=== PATIENT | female | born 1980 | race Two or more races ===

== ENCOUNTER 2021-01-22 17:56 | Emergency (ER) | payer OTHER ==
[~2021-01-22] VITALS: Ht 165.1 cm; Wt 99.2 kg
--- NOTE | 2021-01-22 18:24 | PHYS DOC ---
Past History Past Medical History: Migraines General Adult EDM: Chief Complaint: HEADACHE HPI: HPI: ".. This migraine will not go away... I ve had it since Tuesday.... I did have a CT maybe a year ago.. it was okay.. I usually just take tylenol... but it has not helped much this time..." Patient is a 40 year old female who presents with above hx and complaints of migraine. Patient states distribution of pain and symptoms are similar to her prior migraines. Sometimes the onset of headache is related to weather changes. Patient does have photosensitivity, mild nausea, and sensitivity to loud noises. Patient denies any fever or chills. Patient denies any specific ill contacts. Patient denies any recent travel. Patient denies any history of trauma. Patient denies any history of cancer. Patient denies any history of immunosuppression. Patient denies any history of IV drug use. Patient normally healthy. Patient follows with Dr. Coulter as a primary. Review of Systems: Review of Systems: Constitutional: Denies fever or chills Eyes: Denies change in visual acuity HENT: Denies nasal congestion or sore throat Respiratory: Denies cough or shortness of breath Cardiovascular: Denies chest pain or edema GI: Denies abdominal pain, nausea, vomiting, bloody stools or diarrhea : Denies dysuria Musculoskeletal: Denies back pain or joint pain Integument: Denies rash Neurologic: Complains of headache,. Denies focal weakness or sensory changes Endocrine: Denies polyuria or polydipsia Lymphatic: Denies swollen glands Psychiatric: Denies depression or anxiety Family History: Family History: Noncontributory Current Medications: Current Meds: See nursing for home meds Allergies: Allergies: Allergies Coded Allergies Type Severity Reaction Last Updated Verified No Known Drug Allergies 01/22/21 No Physical Exam: PE: Constitutional: Well developed, well nourished, moderate acute distress, non- toxic appearance. [] HENT: Normocephalic, atraumatic, bilateral external ears normal, oropharynx moist, no oral exudates, nose normal. [] Eyes: PERRLA, EOMI, conjunctiva normal, no discharge. Does have photophobia. Fundi grossly benign.. Extraocular muscles intact. Neck: Normal range of motion, no tenderness, supple, no stridor. [] Cardiovascular:Heart rate regular rhythm, no murmur. The bedside monitor monitor did show a somewhat abnormal pattern with inversion of T wave. Lungs & Thorax: Bilateral breath sounds clear to auscultation [] Abdomen: Bowel sounds normal, soft, no tenderness, no masses, no pulsatile masses. [] Skin: Warm, dry, no erythema, no rash. [] Back: No tenderness, no CVA tenderness. [] Extremities: No tenderness, no cyanosis, no clubbing, ROM intact, no edema. [] Neurologic: Alert and oriented X 3, moves extremities on request, did have distal sensory, no focal deficits noted. [] DTRs +2 patella and brachial. 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 No drift. Psychologic: Affect anxious, judgement normal, mood normal. [] EKG: EKG: My interpretation EKG shows a sinus rhythm 69 bpm with inferior changes. No findings of acute STEMI of contralateral changes however. But does appear to be slightly abnormal EKG. [] Radiology/Procedures: Radiology/Procedures: [][place] [id number] IMAGING REPORT Signed PATIENT: PAOLA RUBIO ACCOUNT: [id number] : 1980 LOCATION: ER AGE: 40 SEX: F EXAM STATUS: PRE ER ORD. PHYSICIAN: EDIS STOVER MD REASON: headache onset tuesday PROCEDURE: CT HEAD WO CONTRAST EXAMINATION: CT head without IV contrast INDICATION:40 years, Female, headache. COMPARISON: None TECHNIQUE: Spiral acquisition of contiguous images from the skull base to the vertex were obtained. Sagittal and coronal 2D reformatted series were provided by the technologist. Soft tissue and bone window algorithms were reviewed. Exposure: One or more of the following individualized dose reduction techniques were utilized for this examination: 1. Automated exposure control 2. Adjustment of the mA and/or kV according to patient size 3. Use of iterative reconstruction technique. FINDINGS: Neither mass, midline shift, intracranial hemorrhage, acute/subacute ischemic changes, nor extraaxial fluid collections are seen. The brain parenchyma is normal in appearance. The ventricles are normal in size. The paranasal sinuses, mastoid air cells, and middle ears are clear. The orbital contents appear within normal limits. IMPRESSION: No acute intracranial abnormality. Electronically signed by: Milly Marie MD (01/22/2021 7:13 PM) [facility] DICTATED AND SIGNED BY: MILLY MARIE MD DATE: 01/22/21 191 CC: EDIS STOVER MD; JJ COULTER MD ~MTH0 0 Heart Score: C/O Chest Pain: N/A HEART Score for Chest Pain: HEART Score for Chest Pain Response (Comments) Value History Moderately Suspicious 1 ECG Nonspecific Repolarizatio 1 Age < 45 0 Risk Factors No Risk Factors 0 Troponin < Normal Limit 0 Total 2 Risk Factors: Risk Factors: DM, Current or recent (<one month) smoker, HTN, HLP, family history of CAD, obesity. Risk Scores: Score 0 - 3: 2.5% MACE over next 6 weeks - Discharge Home Score 4 - 6: 20.3% MACE over next 6 weeks - Admit for Clinical Observation Score 7 - 10: 72.7% MACE over next 6 weeks - Early Invasive Strategies Course & Med Decision Making: Course & Med Decision Making Pertinent Labs and Imaging studies reviewed. (See chart for details) Patient received bolus of LR. 1000 cc, Zofran, 8 mg, Benadryl, and Imitrex 6 mg subcu.. The patient observed in the emergency department and she reported almost complete relief of her symptoms. Patient requesting discharge home. Patient given a prescription for Imitrex to try to take 100 mg at the start of the headache. Instructed not to take more than 200 mg in 24-hour period. Follow-up primary care. Return if any concerns. May also take Tylenol and ibuprofen for pain. Impression: 1. Migraine headache 2. Viral Syndrome.? [] Dragon Disclaimer: Mauro Disclaimer: This electronic medical record was generated, in whole or in part, using a voice recognition dictation system. Departure Departure: Referrals: JJ COULTER MD (PCP) Scripts Sumatriptan Succinate (IMITREX) 100 Mg Tablet 100 MG PO at start of headache for migraine, #10 TAB Prov: EDIS STOVER MD 01/22/21 Ondansetron Hcl (ZOFRAN) 4 Mg Tablet 8 MG PO QIDPRN PRN for NAUSEA/VOMITING, #30 TAB Prov: EDIS STOVER MD 01/22/21 Mauro Disclaimer This chart was dictated in whole or in part using Voice Recognition software in a busy, high-work load, and often noisy Emergency Department environment. It may contain unintended and wholly unrecognized errors or omissions. EDIS STOVER MD Jan 22, 2021 18:24
[2021-01-22] MEDS ORDERED: ONDANSETRON PF 4 MG/2 ML VIAL. IVP ONE (18:30)
[2021-01-22] MEDS ORDERED: diphenhydrAMINE 50 MG/ML VIAL IV ONE (18:30)
[2021-01-22] MEDS ORDERED: IV RINGERS SOLUTION,LACTATED 1,000 ML IV SCH (18:30)
[2021-01-22] MEDS ORDERED: SUMAtriptan SUCC 6 MG/0.5 ML VIAL SQ ONE (18:45)
[2021-01-22 18:58] LABS: BASO # 0.1 x10^3/uL (0.0-0.2); BASO % 1 % (0-3); EOS # 0.1 x10^3/uL (0.0-0.7); EOS % 1 % (0-3); HEMOGLOBIN 14.4 g/dL (12.0-15.5); LYMPH # 3.1 x10^3/uL (1.0-4.8); LYMPH % 25 % (24-48); MEAN CORPUSCULAR HEMOGLOBIN 30 pg (25-35); MEAN CORPUSCULAR HGB CONC 33 g/dL (31-37); MEAN CORPUSCULAR VOLUME 89 fL (79-100); MONO # 0.7 x10^3/uL (0.0-1.1); MONO % 5 % (0-9); NEUT # 8.2 x10^3uL (1.8-7.7); NEUT % 68 % (31-73); PLATELET COUNT 354 x10^3/uL (140-400); RED BLOOD COUNT 4.82 x10^6/uL (3.50-5.40); RED CELL DISTRIBUTION WIDTH 13.2 % (11.5-14.5); WHITE BLOOD COUNT 12.1 x10^3/uL (4.0-11.0)
[2021-01-22 19:10] LABS: CALCIUM 9.2 mg/dL (8.5-10.1); CREATININE 0.6 mg/dL (0.6-1.0); GFR 110.2; POTASSIUM 3.6 mmol/L (3.5-5.1)
--- NOTE | 2021-01-22 19:16 | RAD ---
EXAMINATION: CT head without IV contrast INDICATION:40 years, Female, headache. COMPARISON: None TECHNIQUE: Spiral acquisition of contiguous images from the skull base to the vertex were obtained. S agittal and coronal 2D reformatted series were provided by the technologist. Soft tissue and bone win aleida algorithms were reviewed. Exposure: One or more of the following individualized dose reduction techniques were utilized for thi s examination: 1. Automated exposure control 2. Adjustment of the mA and/or kV according to patient size 3. Use of iterative reconstruction technique. FINDINGS: Neither mass, midline shift, intracranial hemorrhage, acute/subacute ischemic changes, nor extraaxial fluid collections are seen. The brain parenchyma is normal in appearance. The ventricles are normal in size. The paranasal sinuses, mastoid air cells, and middle ears are clear. The orbital contents appear within normal limits. IMPRESSION: No acute intracranial abnormality. Electronically signed by: Tariq Marie MD (01/22/2021 7:13 PM) [facility]
[2021-01-22 19:22] LABS: C REACTIVE PROTEIN 6.9 mg/L (0-3.3)
[2021-01-22] MEDS ORDERED: ONDA4TAB7 PO (20:46)
[2021-01-22] MEDS ORDERED: SUMA100T3 PO (20:46)
[2021-01-22 21:10] LABS: BACTERIA,URINE 0 /HPF (0-FEW); BARBITURATES NEG (NEG); BENZODIAZEPINES NEG (NEG); BILIRUBIN,URINE NEG (NEG); CANNABINOIDS NEG (NEG); CLARITY,URINE HAZY; COCAINE NEG (NEG); COLOR,URINE STRAW; GLUCOSE,URINE NEG (NEG); METHADONE NEG (NEG); NITRITE,URINE NEG (NEG); OPIATES NEG (NEG); PHENCYCLIDINE NEG (NEG); RBC,URINE 0 /HPF (0-2); SQUAMOUS EPITHELIAL CELL,UR OCC /LPF; UROBILINOGEN,URINE 0.2 mg/dL (0.2 mg/dL); WBC,URINE 0 /HPF (0-4)
[2021-01-22 21:14] LABS: AMPHETAMINE/METHAMPHETAMINE NEG (NEG)
[2021-01-22 21:30] VITALS: BP 140/90
--- NOTE | 2021-01-23 00:41 | EKG ---
[address] [address] Test Date: 2021-01-22 Test Time: 19:12:39 Pat Name: PAOLA RUBIO Department: Room: Gender: F Iron Erector: ELBERT : 1980 Requested By: EDIS STOVER Order Number: [id number] Reading MD: Measurements Intervals [place] Rate: 69 P: 36 ID: [id number] QRS: 17 QRSD: 88 T: 26 QT: 398 QTc: 428 Interpretive Statements SINUS RHYTHM QRS(T) CONTOUR ABNORMALITY CONSISTENT WITH INFERIOR INFARCT PROBABLY OLD ABNORMAL ECG RI6.02 No previous ECG available for comparison
== END 2021-01-22 21:30 | disposition home or self-care (01) ==
LOC: ER 17:56
DX: G43.909 Migraine, unspecified, not intractable, without status migrainosus (principal); B34.9 Viral infection, unspecified
CPT/HCPCS: 36415; 70450; 80048; 80307; 81001; 81025; 82550; 83880; 84484; 85025; 86140; 93005; 96361; 96372; 96374; 96375; 99285; J1200; J2405; J3030; J7120